=== PATIENT | female | born 1980 | race Hispanic/Latino ===

== ENCOUNTER 2018-02-21 14:24 | Emergency (ER) | payer MEDICAID, OTHER ==
[~2018-02-21 14:24] MED LIST: DOCU-116 PO; IBUP-2077 PO; PRED10TA23 PO; PREN-196 PO; PREN1TAB80 PO
[2018-02-21] MEDS ORDERED: SODIUM CHLORIDE 0.9% 1000ML 2,000 ML IV ONE (14:38)
[2018-02-21 14:51] LABS: BASOPHILS % (AUTO) 0.5 % (0.0-5.0); EOSINOPHILS % (AUTO) 1.1 % (0.0-8.0); LYMPHOCYTES % (AUTO) 30.4 % (21.0-51.0); MEAN CORPUSCULAR HEMOGLOBIN 28.8 pg (27.0-33.0); MEAN CORPUSCULAR VOLUME 84.9 fL (79-99); MONOCYTES % (AUTO) 7.2 % (3.0-13.0); NEUTROPHILS % (AUTO) 60.8 % (40.0-77.0); PLATELET COUNT (AUTO) 283 K/uL (130-400); RED BLOOD CELL COUNT(AUTO) 4.83 MIL/uL (4.00-5.50); RED CELL DISTRIBUTION WIDTH 14.6 % (11.0-15.5); WHITE BLOOD COUNT (AUTO) 8.8 K/uL (4.8-10.8)
[2018-02-21 14:53] LABS: HCG,QUAL RESULT POSITIVE (NEGATIVE)
[2018-02-21 14:54] LABS: APPEARANCE,URINE Clear (CLEAR); BILIRUBIN,URINE Negative (NEGATIVE); COLOR,URINE Yellow (YELLOW); GLUCOSE, URINE (UA) Negative (NEGATIVE); KETONES,URINE Negative (NEGATIVE); LEUKOCYTE ESTERASE ,URINE Moderate (NEGATIVE); NITRATE,URINE Negative (NEGATIVE); OCCULT BLOOD,URINE Negative (NEGATIVE); PH,URINE 7.5 (5.0-8.0); PROTEIN,URINE Negative (NEGATIVE)
[2018-02-21 15:02] LABS: CREATININE 0.7 mg/dL (0.5-1.5); POTASSIUM 3.3 mmol/L (3.5-5.1)
[2018-02-21 15:03] LABS: BACTERIA,URINE Few /HPF (None Seen); RBC,URINE None Seen /HPF (0-1); WBC,URINE 0-1 /HPF (0-1)
[2018-02-21 15:30] LABS: BILIRUBIN,TOTAL 0.5 mg/dL (0.2-1.0); TOTAL PROTEIN, SERUM 7.7 g/dL (6.0-8.3)
[2018-02-21] MEDS ORDERED: ONDANSETRON HCL 4 MG/2 ML VIAL ONE (15:51)
== END 2018-02-21 16:33 | disposition home or self-care (01) ==
LOC: EDH 14:24
DX: O26.891 Other specified pregnancy related conditions, first trimester (principal); R10.9 Unspecified abdominal pain; R11.2 Nausea with vomiting, unspecified; R51 Headache; M06.9 Rheumatoid arthritis, unspecified; H40.89 Other specified glaucoma; Z98.890 Other specified postprocedural states
CPT/HCPCS: 36415; 76801; 80053; 81001; 81025; 83690; 84702; 85025; 96361; 96374; 99285; J2405; J7030

== ENCOUNTER 2018-02-25 11:04 | Emergency (ER) | payer MEDICAID, OTHER ==
[2018-02-25 11:47] LABS: BASOPHILS % (AUTO) 0.5 % (0.0-5.0); EOSINOPHILS % (AUTO) 0.2 % (0.0-8.0); HEMATOCRIT 40.2 % (36-48); LYMPHOCYTES % (AUTO) 24.4 % (21.0-51.0); MEAN CORPUSCULAR HEMOGLOBIN 28.8 pg (27.0-33.0); MEAN CORPUSCULAR VOLUME 84.5 fL (79-99); MONOCYTES % (AUTO) 4.7 % (3.0-13.0); NEUTROPHILS % (AUTO) 70.2 % (40.0-77.0); NUCLEATED RED BLOOD CELLS 0.1 % (0.0-0.19); PLATELET COUNT (AUTO) 263 K/uL (130-400); RED BLOOD CELL COUNT(AUTO) 4.76 MIL/uL (4.00-5.50); WHITE BLOOD COUNT (AUTO) 8.4 K/uL (4.8-10.8)
[2018-02-25] MEDS ORDERED: ONDANSETRON HCL 4 MG/2 ML VIAL ONE (11:48)
[2018-02-25] MEDS ORDERED: SODIUM CHLORIDE 0.9% 1000ML 1,000 ML IV ONE (11:48)
[2018-02-25] MEDS ORDERED: LIDOCAINE 5% TOPICAL PATCH TP ONE (11:49)
[2018-02-25] MEDS ORDERED: ACETAMINOPHEN 325 MG TAB ONE (11:49)
[2018-02-25 11:53] LABS: CREATININE 0.8 mg/dL (0.5-1.5); POTASSIUM 3.6 mmol/L (3.5-5.1)
[2018-02-25 11:58] LABS: ALBUMIN 3.9 g/dL (3.5-5.0); BILIRUBIN,TOTAL 0.8 mg/dL (0.2-1.0); TOTAL PROTEIN, SERUM 7.5 g/dL (6.0-8.3)
== END 2018-02-25 12:27 | disposition home or self-care (01) ==
LOC: EDH 11:04
DX: O21.0 Mild hyperemesis gravidarum (principal); O26.891 Other specified pregnancy related conditions, first trimester; M25.551 Pain in right hip; M06.9 Rheumatoid arthritis, unspecified; H40.9 Unspecified glaucoma; Z3A.01 Less than 8 weeks gestation of pregnancy
CPT/HCPCS: 36415; 80053; 85025; 96361; 96374; 99284; J2405; J7030

== ENCOUNTER 2018-02-26 13:28 | Observation (INO) | payer MEDICAID, OTHER ==
[~2018-02-26] VITALS: Ht 154.9 cm; Wt 74.8 kg
[2018-02-26 14:19] LABS: APPEARANCE,URINE Clear (CLEAR); BILIRUBIN,URINE Small (NEGATIVE); COLOR,URINE Dark Yellow (YELLOW); GLUCOSE, URINE (UA) Negative (NEGATIVE); KETONES,URINE >=80 mg/dL (NEGATIVE); LEUKOCYTE ESTERASE ,URINE Moderate (NEGATIVE); NITRATE,URINE Negative (NEGATIVE); OCCULT BLOOD,URINE Negative (NEGATIVE); PH,URINE 5.5 (5.0-8.0); PROTEIN,URINE POS 1+ (NEGATIVE)
[2018-02-26] MEDS ORDERED: ACETAMINOPHEN 325 MG TAB ONE (14:20)
[2018-02-26 14:23] LABS: BASOPHILS % (AUTO) 0.3 % (0.0-5.0); EOSINOPHILS % (AUTO) 0.2 % (0.0-8.0); HEMATOCRIT 38.9 % (36-48); LYMPHOCYTES % (AUTO) 24.3 % (21.0-51.0); MEAN CORPUSCULAR HEMOGLOBIN 28.6 pg (27.0-33.0); MEAN CORPUSCULAR HGB CONC 33.6 g/dL (32.0-36.0); MEAN CORPUSCULAR VOLUME 85.2 fL (79-99); MONOCYTES % (AUTO) 5.5 % (3.0-13.0); NEUTROPHILS % (AUTO) 69.7 % (40.0-77.0); PLATELET COUNT (AUTO) 261 K/uL (130-400); RED BLOOD CELL COUNT(AUTO) 4.57 MIL/uL (4.00-5.50); RED CELL DISTRIBUTION WIDTH 14.3 % (11.0-15.5); WHITE BLOOD COUNT (AUTO) 9.6 K/uL (4.8-10.8)
[2018-02-26 14:31] LABS: CREATININE 0.7 mg/dL (0.5-1.5); POTASSIUM 3.7 mmol/L (3.5-5.1)
[2018-02-26 14:40] LABS: BACTERIA,URINE Few /HPF (None Seen); RBC,URINE 0-1 /HPF (0-1); SQUAMOUS EPITHELIAL CELL,UR Few /HPF (0-2)
[2018-02-26 14:41] LABS: MUCUS,URINE Rare LPF (None Seen)
[2018-02-26 14:57] LABS: ALBUMIN 3.9 g/dL (3.5-5.0); BILIRUBIN,TOTAL 0.7 mg/dL (0.2-1.0); TOTAL PROTEIN, SERUM 7.7 g/dL (6.0-8.3)
[2018-02-26] MEDS ORDERED: ONDANSETRON HCL 4 MG/2 ML VIAL ONE (17:09)
[2018-02-26] MEDS ORDERED: SODIUM CHLORIDE 0.9% 1000ML 1,000 ML IV ONE (17:09)
[2018-02-26] MEDS ORDERED: METOCLOPRAMIDE 10 MG/2 ML VIAL ONE (17:12)
[2018-02-26] MEDS ORDERED: DiphenhydrAMINE HCL 50 MG/ML VIAL ONE (17:46)
[2018-02-26 18:22] VITALS: BP 137/69
[2018-02-26] MEDS ORDERED: ACETAMINOPHEN-CODEINE 300/30MG TAB PO PRN (18:45)
[2018-02-26 20:56] VITALS: BP 113/59
[2018-02-27 00:28] VITALS: BP 113/66
[2018-02-27] MEDS: DEXTROSE 5%-LACTATED RINGERS 1,000 ML IV SCH ×3 (01:25→09:58)
[2018-02-27 04:25] VITALS: BP 130/76
[2018-02-27 06:34] LABS: BASOPHILS % (AUTO) 0.4 % (0.0-5.0); EOSINOPHILS % (AUTO) 0.7 % (0.0-8.0); HEMATOCRIT 36.4 % (36-48); LYMPHOCYTES % (AUTO) 31.4 % (21.0-51.0); MEAN CORPUSCULAR HGB CONC 34.2 g/dL (32.0-36.0); MEAN CORPUSCULAR VOLUME 84.9 fL (79-99); MONOCYTES % (AUTO) 7.6 % (3.0-13.0); NEUTROPHILS % (AUTO) 59.9 % (40.0-77.0); PLATELET COUNT (AUTO) 220 K/uL (130-400); RED BLOOD CELL COUNT(AUTO) 4.29 MIL/uL (4.00-5.50); RED CELL DISTRIBUTION WIDTH 14.2 % (11.0-15.5)
[2018-02-27 06:41] LABS: CREATININE 0.7 mg/dL (0.5-1.5); POTASSIUM 3.5 mmol/L (3.5-5.1)
[2018-02-27 07:20] VITALS: BP 126/61
[2018-02-27] MEDS: ONDANSETRON HCL 4 MG/2 ML VIAL IVP PRN ×2 (07:20→14:29)
[2018-02-27 11:59] VITALS: BP 115/70
[2018-02-27 15:20] VITALS: BP 129/79
[2018-02-27] MEDS ORDERED: PROMETHAZINE HCL 25 MG SUPPOSITORY RC SCH (16:15)
== END 2018-02-27 17:50 | disposition home or self-care (01) ==
LOC: EDH 13:28 → EDHIP 13:29 → WSH 18:20
PROVIDERS: ADMIT Specialist; ATTEND Specialist
DX: O21.0 Mild hyperemesis gravidarum (principal); Z3A.01 Less than 8 weeks gestation of pregnancy
CPT/HCPCS: 36415 ×2; 76801; 80048; 80053; 81001; 84702; 85025 ×2; 96361; 96374; 96376; 99285; G0378 ×28; J1200; J2405 ×2; J2765; J7030

== ENCOUNTER 2018-03-07 11:54 | Emergency (ER) | payer MEDICAID ==
[2018-03-07 12:49] LABS: BILIRUBIN,URINE Moderate (NEGATIVE); COLOR,URINE Dark Yellow (YELLOW); GLUCOSE, URINE (UA) Negative (NEGATIVE); KETONES,URINE 40 mg/dL (NEGATIVE); LEUKOCYTE ESTERASE ,URINE Moderate (NEGATIVE); NITRATE,URINE Positive (NEGATIVE); OCCULT BLOOD,URINE Trace (NEGATIVE); PROTEIN,URINE POS 1+ (NEGATIVE)
[2018-03-07 12:50] LABS: APPEARANCE,URINE SLIGHTLY CLOUDY (CLEAR)
[2018-03-07 12:58] LABS: BACTERIA,URINE Moderate /HPF (None Seen); RBC,URINE 0-1 /HPF (0-1)
[2018-03-07 13:16] LABS: BASOPHILS % (AUTO) 0.5 % (0.0-5.0); EOSINOPHILS % (AUTO) 0.4 % (0.0-8.0); HEMATOCRIT 46.5 % (36-48); LYMPHOCYTES % (AUTO) 21.2 % (21.0-51.0); MEAN CORPUSCULAR HEMOGLOBIN 28.3 pg (27.0-33.0); MEAN CORPUSCULAR HGB CONC 33.6 g/dL (32.0-36.0); MEAN CORPUSCULAR VOLUME 84.2 fL (79-99); MONOCYTES % (AUTO) 8.2 % (3.0-13.0); NEUTROPHILS % (AUTO) 69.7 % (40.0-77.0); NUCLEATED RED BLOOD CELLS 0.1 % (0.0-0.19); PLATELET COUNT (AUTO) 294 K/uL (130-400); RED BLOOD CELL COUNT(AUTO) 5.52 MIL/uL (4.00-5.50); WHITE BLOOD COUNT (AUTO) 8.7 K/uL (4.8-10.8)
[2018-03-07 13:28] LABS: HCG,QUAL RESULT POSITIVE (NEGATIVE)
[2018-03-07 13:32] LABS: CARBON DIOXIDE 29 mmol/L (21-32); CHLORIDE 96 mmol/L (101-111); GLOMERULAR FILTR. RATE CALC 66 mL/min (>60); GLUCOSE,RANDOM 95 mg/dL (70-105); POTASSIUM 3.7 mmol/L (3.5-5.1); SODIUM SERUM 133 mmol/L (136-145); UREA NITROGEN, BLOOD 17 mg/dL (7-18)
[2018-03-07 13:36] LABS: AMPHET/METH SCREEN,URINE NEGATIVE (NEGATIVE); BARBITURATE SCREEN, URINE NEGATIVE (NEGATIVE); BENZODIAZEPINES SCREEN,URINE NEGATIVE (NEGATIVE); CANNABINOID SCREEN,URINE POSITIVE (NEGATIVE); COCAINE SCREEN,URINE NEGATIVE (NEGATIVE); OPIATE SCREEN,URINE NEGATIVE (NEGATIVE); PHENCYCLIDINE SCREEN,URINE NEGATIVE (NEGATIVE)
[2018-03-07 13:38] LABS: ALANINE AMINOTRANSFERASE 101 U/L (12-78); ALBUMIN 4.1 g/dL (3.5-5.0); ASPARTATE AMINOTRANSFERASE 47 U/L (10-37); BILIRUBIN,TOTAL 1.5 mg/dL (0.2-1.0); TOTAL PROTEIN, SERUM 8.3 g/dL (6.0-8.3)
[2018-03-07] MEDS ORDERED: SODIUM CHLORIDE 0.9% 1000ML 1,000 ML IV ONE (13:38)
[2018-03-07] MEDS ORDERED: PROMETHAZINE HCL 25 MG/ML 1ML AMPULE IM ONE (13:39)
[2018-03-07 13:41] LABS: ACETAMINOPHEN < 1 mcg/mL (10-30); SALICYLATE < 2.8 mg/dL (2.8-20.0)
[2018-03-07] MEDS ORDERED: ONDANSETRON ODT 4 MG TAB ONE (16:58)
== END 2018-03-07 17:32 | disposition home or self-care (01) ==
LOC: EDH 11:54
DX: O21.0 Mild hyperemesis gravidarum (principal); O26.891 Other specified pregnancy related conditions, first trimester; F32.9 Major depressive disorder, single episode, unspecified; F12.10 Cannabis abuse, uncomplicated; M06.9 Rheumatoid arthritis, unspecified; H40.9 Unspecified glaucoma; Z3A.08 8 weeks gestation of pregnancy
CPT/HCPCS: 36415; 80053; 80305; 81001; 81025; 85025; 96361; 96374; 99284; G0480 ×2; G0481; J2550; J7030

== ENCOUNTER 2018-03-11 10:34 | Emergency (ER) | payer MEDICAID ==
[2018-03-11] MEDS ORDERED: SODIUM CHLORIDE 0.9% 1000ML 2,000 ML IV ONE (11:34)
[2018-03-11] MEDS ORDERED: PROMETHAZINE HCL 25 MG/ML 1ML AMPULE IM ONE (11:35)
[2018-03-11 11:49] LABS: BASOPHILS % (AUTO) 0.6 % (0.0-5.0); EOSINOPHILS % (AUTO) 0.5 % (0.0-8.0); HEMATOCRIT 45.9 % (36-48); LYMPHOCYTES % (AUTO) 21.2 % (21.0-51.0); MEAN CORPUSCULAR HEMOGLOBIN 28.7 pg (27.0-33.0); MEAN CORPUSCULAR HGB CONC 34.6 g/dL (32.0-36.0); MEAN CORPUSCULAR VOLUME 82.9 fL (79-99); MONOCYTES % (AUTO) 8.6 % (3.0-13.0); NEUTROPHILS % (AUTO) 69.1 % (40.0-77.0); PLATELET COUNT (AUTO) 290 K/uL (130-400); RED BLOOD CELL COUNT(AUTO) 5.53 MIL/uL (4.00-5.50); RED CELL DISTRIBUTION WIDTH 13.9 % (11.0-15.5); WHITE BLOOD COUNT (AUTO) 9.2 K/uL (4.8-10.8)
[2018-03-11 12:07] LABS: ALBUMIN 4.1 g/dL (3.5-5.0); BILIRUBIN,DIRECT 0.8 mg/dL (0.0-0.3); BILIRUBIN,TOTAL 1.5 mg/dL (0.2-1.0); CREATININE 1.1 mg/dL (0.5-1.5); TOTAL PROTEIN, SERUM 8.5 g/dL (6.0-8.3)
[2018-03-11] MEDS ORDERED: SODIUM CHLORIDE 0.9% 1000ML 1,000 ML IV ONE (13:41)
[2018-03-11 13:59] LABS: APPEARANCE,URINE Cloudy (CLEAR); BILIRUBIN,URINE Small (NEGATIVE); COLOR,URINE Dark Yellow (YELLOW); GLUCOSE, URINE (UA) Negative (NEGATIVE); KETONES,URINE 40 mg/dL (NEGATIVE); LEUKOCYTE ESTERASE ,URINE Trace (NEGATIVE); NITRATE,URINE Negative (NEGATIVE); OCCULT BLOOD,URINE Negative (NEGATIVE); PH,URINE 8.5 (5.0-8.0); PROTEIN,URINE POS 1+ (NEGATIVE)
[2018-03-11 14:05] LABS: AMPHET/METH SCREEN,URINE NEGATIVE (NEGATIVE); BARBITURATE SCREEN, URINE NEGATIVE (NEGATIVE); BENZODIAZEPINES SCREEN,URINE NEGATIVE (NEGATIVE); CANNABINOID SCREEN,URINE POSITIVE (NEGATIVE); COCAINE SCREEN,URINE NEGATIVE (NEGATIVE); OPIATE SCREEN,URINE NEGATIVE (NEGATIVE); PHENCYCLIDINE SCREEN,URINE NEGATIVE (NEGATIVE)
[2018-03-11 14:10] LABS: BACTERIA,URINE Few /HPF (None Seen); HYALINE CASTS, URINE 0-1 /LPF (0-1 /LPF); RBC,URINE 0-1 /HPF (0-1); WBC,URINE 0-1 /HPF (0-1)
[2018-03-11] MEDS ORDERED: POTASSIUM BICARB/CIT AC 25 MEQ TABLET.EFF ONE (14:10)
== END 2018-03-11 14:41 | disposition home or self-care (01) ==
LOC: EDH 10:34
DX: O21.1 Hyperemesis gravidarum with metabolic disturbance (principal); M06.9 Rheumatoid arthritis, unspecified; H40.9 Unspecified glaucoma; Z3A.00 Weeks of gestation of pregnancy not specified
CPT/HCPCS: 36415; 80048; 80076; 80305; 81001; 82150; 83690; 85025; 96361; 96365; 99285; J2550; J7030 ×2

== ENCOUNTER 2018-09-01 09:34 | Observation (INO) | payer MEDICAID ==
[~2018-09-01 09:34] MED LIST changes: -DOCU-116 PO; +DOXY1TAB3 PO; -IBUP-2077 PO; -PRED10TA23 PO; -PREN-196 PO; -PREN1TAB80 PO
== END 2018-09-01 11:05 | disposition home or self-care (01) ==
LOC: LDH 09:34
PROVIDERS: ADMIT Specialist; ATTEND Specialist
DX: O09.523 Supervision of elderly multigravida, third trimester (principal); Z3A.33 33 weeks gestation of pregnancy
CPT/HCPCS: 59025; 76819; G0378 ×3

== ENCOUNTER 2018-09-18 15:56 | Observation (INO) | payer MEDICAID ==
[~2018-09-18] VITALS: Ht 157.5 cm; Wt 88.0 kg
[2018-09-18] MEDS: LACTATED RINGERS 1000ML 1,000 ML IV SCH ×2 (15:30→16:30)
[2018-09-18] MEDS ORDERED: ONDANSETRON HCL MDV 20ML 2 MG/ML VIAL IVP PRN (16:15)
[2018-09-18] MEDS ORDERED: AMPICILLIN 2GM+NS 100ML 100 ML IV ONE (16:26)
[2018-09-18] MEDS ORDERED: ONDANSETRON HCL 4 MG/2 ML VIAL ONE (16:27)
== END 2018-09-18 18:25 | disposition home or self-care (01) ==
LOC: LDH 15:56
DX: O41.03X0 Oligohydramnios, third trimester, not applicable or unspecified (principal); O21.2 Late vomiting of pregnancy; O23.43 Unspecified infection of urinary tract in pregnancy, third trimester; O09.523 Supervision of elderly multigravida, third trimester; Z3A.35 35 weeks gestation of pregnancy
CPT/HCPCS: 59025; 87088; 96361 ×2; 96365; G0378 ×3; J0290; J7120 ×2; J2405

== ENCOUNTER 2018-09-20 17:14 | Observation (INO) | payer MEDICAID | END 2018-09-21 10:38 | disposition home or self-care (01) | LOC: LDH 09-21 08:39 | DX: O26.893 Other specified pregnancy related conditions, third trimester (principal); R10.2 Pelvic and perineal pain; R10.30 Lower abdominal pain, unspecified; O09.523 Supervision of elderly multigravida, third trimester; Z3A.36 36 weeks gestation of pregnancy | CPT/HCPCS: 59025; 76819; G0378 ×2 ==

== ENCOUNTER 2018-09-27 09:15 | Observation (INO) | payer MEDICAID | END 2018-09-27 11:00 | disposition home or self-care (01) | LOC: EDH 09:15 → LDH 09:30 | PROVIDERS: ADMIT Specialist; ATTEND Specialist | DX: O26.893 Other specified pregnancy related conditions, third trimester (principal); R10.9 Unspecified abdominal pain; M54.9 Dorsalgia, unspecified; M06.9 Rheumatoid arthritis, unspecified; O09.523 Supervision of elderly multigravida, third trimester; O99.113 Other diseases of the blood and blood-forming organs and certain disorders involving the immune mechanism complicating pregnancy, third trimester; Z3A.37 37 weeks gestation of pregnancy | CPT/HCPCS: 99284; G0378 ==

== ENCOUNTER 2018-10-03 06:38 | Inpatient (IN) | payer MEDICAID | END 2018-10-04 14:40 | disposition home or self-care (01) | LOC: LDH 06:38 → WSH 15:15 | PROC: 10E0XZZ Delivery of Products of Conception, External Approach (ICD-10-PCS; principal; ~2018-10-03) | DX: O80 Encounter for full-term uncomplicated delivery (principal); Z37.0 Single live birth; Z3A.00 Weeks of gestation of pregnancy not specified ==

== ENCOUNTER 2018-11-24 07:34 | Day surgery (SDC) | payer MEDICAID ==
[2018-11-21 12:23] LABS: BASOPHILS % (AUTO) 0.7 % (0.0-5.0); EOSINOPHILS % (AUTO) 3.5 % (0.0-8.0); HEMATOCRIT 39.9 % (36-48); LYMPHOCYTES % (AUTO) 34.2 % (21.0-51.0); MEAN CORPUSCULAR HEMOGLOBIN 27.1 pg (27.0-33.0); MEAN CORPUSCULAR HGB CONC 32.7 g/dL (32.0-36.0); MEAN CORPUSCULAR VOLUME 82.6 fL (79-99); MONOCYTES % (AUTO) 4.7 % (3.0-13.0); NEUTROPHILS % (AUTO) 56.9 % (40.0-77.0); NUCLEATED RED BLOOD CELLS 0.1 % (0.0-0.19); PLATELET COUNT (AUTO) 255 K/uL (130-400); RED BLOOD CELL COUNT(AUTO) 4.83 MIL/uL (4.00-5.50); RED CELL DISTRIBUTION WIDTH 15.4 % (11.0-15.5); WHITE BLOOD COUNT (AUTO) 6.9 K/uL (4.8-10.8)
[2018-11-21 13:11] VITALS: BP 120/78
[2018-11-24] VITALS (14 sets, daily range): BP systolic 119–195; BP diastolic 64–93
[~2018-11-24] VITALS: Ht 157.5 cm; Wt 84.2 kg
[~2018-11-24 07:34] MED LIST changes: -DOXY1TAB3 PO; +IBUP-2077 PO
[2018-11-24] MEDS ORDERED: LACTATED RINGERS 1000ML 1,000 ML IV ONE (08:19)
[2018-11-24] MEDS ORDERED: GLYCOPYRROLATE 1 MG/5 ML SYRINGE ONE (08:35)
[2018-11-24] MEDS ORDERED: ONDANSETRON HCL 4 MG/2 ML VIAL ONE (08:35)
[2018-11-24] MEDS ORDERED: NEOSTIGMINE 5MG/5ML SYR IV ONE (08:35)
[2018-11-24] MEDS ORDERED: DEXAMETHASONE SOD PHOSPHATE 10MG/ML 1ML VIAL ONE (08:35)
[2018-11-24] MEDS ORDERED: LIDOCAINE PF 2% 5ML ABBOJECT ONE ×2 (08:35→08:36)
[2018-11-24] MEDS ORDERED: SUCCINYLCHOLINE 200MG/10ML SYR ONE (08:35)
[2018-11-24] MEDS ORDERED: PROPOFOL 10 MG/ML 20ML VIAL IV ONE (08:35)
[2018-11-24] MEDS ORDERED: MIDAZOLAM HCL 1 MG/ML 2ML VIAL ONE (08:35)
[2018-11-24] MEDS ORDERED: FENTANYL CITRATE PF 50 MCG/1 ML 2ML VIAL ONE (08:36)
[2018-11-24] MEDS ORDERED: ROCURONIUM 10MG/1ML SYR 10 MG/ML ML ONE (08:36)
[2018-11-24] MEDS ORDERED: KETOROLAC TROMETHAMINE 30MG/ML ONE (09:39)
--- NOTE | 2018-11-24 10:32 | NUR ---
RECEIVED AWAKE ALERT ,NO COMPLAINTS OF DISCOMFORT ,CALL HESS IN REACH,BANDAIDES X2 TO ABDOMEN CLEAN ,ENCOURAGED TO DB AND COUGH ,RETURNS DEMONSTRATION ,WILL CONTINUE TO MONITOR Addendum: 11/24/18 at 1214 by ISMAEL ROB LVN LVN WITH SCANT AMT OF VAGINAL BLEEDING
--- NOTE | 2018-11-24 11:05 | NUR ---
DISCHARGE INSTRUCTIONS GIVEN TO SPOUSE ,VERBALIZE UNDERSTANDING,AND ALSO TO PATIENT,,,,STATES SLIGHT CRAMPING ,BUT TOLERABLE,,AMBULATES TO BR ,STEADY GAIT ,STATES DOES NOT FEEL LIKE HAS TO URINATE ,ENCOURAGED PO FLUIDS TOLERATES ,TO REPORT TO ER OR CALL MD IF CANNOT GO WITHIN 6-8 HOURS AFTER DISCHARGE ,VERBALIZES UNDERSTANDING,NONDISTENDED. Addendum: 11/24/18 at 1153 by ISMAEL ROB LVN LVN PRESCRIPTION GIVEN TO SPOUSE Addendum: 11/24/18 at 1216 by ISMAEL ROB LVN LVN INSTRUCTIONS ON IF HEAVY BLEEDING TO CALL MD OR COME TO ER ,VERBALIZES UNDERSTANDING,CONTINUES WITH SCANT AMT OF VAGINAL BLEEDING
== END 2018-11-24 11:26 | disposition home or self-care (01) ==
LOC: DAH 07:34
PROVIDERS: ATTEND Specialist
DX: Z30.2 Encounter for sterilization (principal); Z98.890 Other specified postprocedural states; Z79.899 Other long term (current) drug therapy; M06.9 Rheumatoid arthritis, unspecified
CPT/HCPCS: 36415; 58671; 84703; 85025; 86850; 86900; 86901; A4215 ×2; A4264; A4351; C1769 ×2; J0330; J1100; J1885; J2001 ×2; J2250; J2405; J2704; J2710; J3010; J3490; J7120

== ENCOUNTER 2020-02-23 16:09 | Emergency (ER) | payer MEDICAID, OTHER | END 2020-02-23 16:23 | disposition left against medical advice (07) | LOC: EDH 16:09 | DX: Z53.21 Procedure and treatment not carried out due to patient leaving prior to being seen by health care provider (principal); M06.9 Rheumatoid arthritis, unspecified; Z72.0 Tobacco use ==

== ENCOUNTER 2020-02-24 08:49 | Emergency (ER) | payer SELFPAY ==
[2020-02-24 09:57] LABS: APPEARANCE,URINE TURBID (CLEAR); BILIRUBIN,URINE NEGATIVE (NEGATIVE); COLOR,URINE YELLOW (YELLOW); GLUCOSE, URINE (UA) NEGATIVE (NEGATIVE); KETONES,URINE NEGATIVE (NEGATIVE); LEUKOCYTE ESTERASE ,URINE NEGATIVE (NEGATIVE); NITRATE,URINE NEGATIVE (NEGATIVE); OCCULT BLOOD,URINE LARGE (NEGATIVE); PH,URINE 5.5 (5.0-8.0); PROTEIN,URINE NEGATIVE (NEGATIVE); UROBILINOGEN,URINE 0.2 mg/dL (0.2-1.0)
[2020-02-24 10:02] LABS: HCG,QUAL RESULT NEGATIVE (NEGATIVE)
[2020-02-24 10:05] LABS: AMPHET/METH SCREEN,URINE NEGATIVE (NEGATIVE); BARBITURATE SCREEN, URINE NEGATIVE (NEGATIVE); BENZODIAZEPINES SCREEN,URINE NEGATIVE (NEGATIVE); CANNABINOID SCREEN,URINE POSITIVE (NEGATIVE); COCAINE SCREEN,URINE NEGATIVE (NEGATIVE); OPIATE SCREEN,URINE NEGATIVE (NEGATIVE); PHENCYCLIDINE SCREEN,URINE NEGATIVE (NEGATIVE)
[2020-02-24 10:06] LABS: RBC,URINE >100 /HPF (0-1); WBC,URINE 0-1 /HPF (0-1)
[2020-02-24 10:07] LABS: AMORPHOUS SEDIMENT,UR Moderate /LPF (None Seen); BACTERIA,URINE Moderate /HPF (None Seen); SQUAMOUS EPITHELIAL CELL,UR Rare /HPF (0-2)
[2020-02-24 10:23] LABS: BASOPHILS % (AUTO) 0.5 % (0.0-5.0); EOSINOPHILS % (AUTO) 1.8 % (0.0-8.0); HEMATOCRIT 24.6 % (36-48); LYMPHOCYTES % (AUTO) 36.8 % (21.0-51.0); MEAN CORPUSCULAR HEMOGLOBIN 22.4 pg (27.0-33.0); MEAN CORPUSCULAR HGB CONC 29.7 g/dL (32.0-36.0); MEAN CORPUSCULAR VOLUME 75.5 fL (79-99); MONOCYTES % (AUTO) 5.3 % (3.0-13.0); NEUTROPHILS % (AUTO) 55.3 % (40.0-77.0); PLATELET COUNT (AUTO) 341 K/uL (130-400); RED BLOOD CELL COUNT(AUTO) 3.26 MIL/uL (4.00-5.50); RED CELL DISTRIBUTION WIDTH 14.9 % (11.0-15.5)
[2020-02-24 10:37] LABS: CREATININE 0.8 mg/dL (0.5-1.5); POTASSIUM 4.1 mmol/L (3.5-5.1)
[2020-02-24 10:41] LABS: BILIRUBIN,DIRECT 0.1 mg/dL (0.0-0.3); BILIRUBIN,TOTAL 0.3 mg/dL (0.2-1.0)
[2020-02-24 10:42] LABS: ALBUMIN 3.7 g/dL (3.5-5.0); INR 0.93 (0.85-1.15); PARTIAL THROMBOPLASTIN TIME 26.4 SEC (26.3-35.5); PROTHROMBIN TIME 10.1 SEC (9.6-11.6); TOTAL PROTEIN, SERUM 6.8 g/dL (6.0-8.3)
== END 2020-02-24 12:03 | disposition home or self-care (01) ==
LOC: EDH 08:49
DX: N93.8 Other specified abnormal uterine and vaginal bleeding (principal); D50.9 Iron deficiency anemia, unspecified; M06.9 Rheumatoid arthritis, unspecified; Z72.0 Tobacco use
CPT/HCPCS: 36415; 80048; 80076; 80305; 81001; 81025; 82550; 85025; 85610; 85730; 86850; 86900; 86901; 87088

== ENCOUNTER 2020-02-25 09:30 | Inpatient (IN) | payer OTHER ==
[~2020-02-25] VITALS: Ht 157.5 cm; Wt 80.3 kg
[2020-02-25] VITALS (24 sets, daily range): BP systolic 97–159; BP diastolic 47–88
[2020-02-25 10:13] LABS: BASOPHILS % (AUTO) 0.5 % (0.0-5.0); EOSINOPHILS % (AUTO) 2.1 % (0.0-8.0); HEMATOCRIT 24.9 % (36-48); LYMPHOCYTES % (AUTO) 36.5 % (21.0-51.0); MEAN CORPUSCULAR HEMOGLOBIN 22.4 pg (27.0-33.0); MEAN CORPUSCULAR HGB CONC 29.7 g/dL (32.0-36.0); MEAN CORPUSCULAR VOLUME 75.5 fL (79-99); MONOCYTES % (AUTO) 5.1 % (3.0-13.0); NEUTROPHILS % (AUTO) 55.3 % (40.0-77.0); NUCLEATED RED BLOOD CELLS 0.5 % (0.0-0.19); PLATELET COUNT (AUTO) 372 K/uL (130-400); RED CELL DISTRIBUTION WIDTH 15.1 % (11.0-15.5); WHITE BLOOD COUNT (AUTO) 6.1 K/uL (4.8-10.8)
[2020-02-25 10:26] LABS: APPEARANCE,URINE CLEAR (CLEAR); BILIRUBIN,URINE NEGATIVE (NEGATIVE); COLOR,URINE YELLOW (YELLOW); GLUCOSE, URINE (UA) NEGATIVE (NEGATIVE); KETONES,URINE NEGATIVE (NEGATIVE); LEUKOCYTE ESTERASE ,URINE NEGATIVE (NEGATIVE); NITRATE,URINE NEGATIVE (NEGATIVE); OCCULT BLOOD,URINE MODERATE (NEGATIVE); PH,URINE 5.5 (5.0-8.0); PROTEIN,URINE NEGATIVE (NEGATIVE); UROBILINOGEN,URINE 0.2 mg/dL (0.2-1.0)
[2020-02-25 10:27] LABS: BACTERIA,URINE Rare /HPF (None Seen); MUCUS,URINE Rare LPF (None Seen); SQUAMOUS EPITHELIAL CELL,UR Rare /HPF (0-2); WBC,URINE 0-1 /HPF (0-1)
[2020-02-25 10:29] LABS: HCG,QUAL RESULT NEGATIVE (NEGATIVE)
[2020-02-25 10:31] LABS: CREATININE 0.8 mg/dL (0.5-1.5); POTASSIUM 3.8 mmol/L (3.5-5.1)
[2020-02-25 10:36] LABS: ALBUMIN 3.8 g/dL (3.5-5.0); BILIRUBIN,DIRECT 0.1 mg/dL (0.0-0.3); BILIRUBIN,TOTAL 0.3 mg/dL (0.2-1.0)
[2020-02-25 10:38] LABS: INR 0.94 (0.85-1.15); PARTIAL THROMBOPLASTIN TIME 26.3 SEC (26.3-35.5); PROTHROMBIN TIME 10.2 SEC (9.6-11.6)
[2020-02-25] MEDS ORDERED: SODIUM CHLORIDE 0.9% 1000ML 1,000 ML IV SCH (11:15)
--- NOTE | 2020-02-25 13:03 | NUR ---
1 unit of blood started transfusing, witnessed by Romina Bailon RN Addendum: 02/25/20 at 1343 by FLORENCE STEPHENS RN Amended: Links added.
--- NOTE | 2020-02-25 15:40 | NUR ---
1 unit of blood transfused, no reactions noted. Addendum: 02/25/20 at 1602 by FLORENCE STEPHENS RN Amended: Links added.
--- NOTE | 2020-02-25 15:55 | NUR ---
taken to holding area via her bed by Maribel Barraza [facility] area RN Addendum: 02/25/20 at 1600 by FLORENCE STEPHENS RN Amended: Links added.
[2020-02-25] MEDS ORDERED: SUCCINYLCHOLINE CHLORIDE 20 MG/ML 10 ML VIAL ONE (16:11)
[2020-02-25] MEDS ORDERED: PROPOFOL 10 MG/ML 20ML VIAL IV ONE (16:11)
[2020-02-25] MEDS ORDERED: LIDOCAINE PF 2% 5ML ABBOJECT ONE (16:11)
[2020-02-25] MEDS ORDERED: FENTANYL CITRATE PF 50 MCG/1 ML 2ML VIAL ONE (16:12)
[2020-02-25] MEDS ORDERED: ONDANSETRON HCL 4 MG/2 ML VIAL ONE (16:44)
[2020-02-25 17:07] LABS: HEMATOCRIT 25.5 % (36-48)
[2020-02-25] MEDS ORDERED: ACETAMINOPHEN-CODEINE 300/30MG TAB PO PRN (18:15)
--- NOTE | 2020-02-25 19:50 | NUR ---
ACTIVITY/STATUS A, A, O , TAKING FLUIDS WELL, DENIES ANY PROBLEMS, UP TO BR TO VOID WITHOUT DIFFICULTY, V/S STABLE, IV REMOVED SITE HEALTHY, BAND AID APPLIED Addendum: 02/26/20 at 0046 by ESEQUIEL ATKINSON LVN Amended: Links added.
--- NOTE | 2020-02-25 20:30 | NUR ---
STATUS/DISCHARGE DENIES ANY CONCERNS, DISCHARGE INSTRUCTIONS GIVEN , ACKNOWLEDGES UNDERSTANDING TO VEHICLE VIA W/C PER DANNI MEDEL OR ANJUM Addendum: 02/26/20 at 0050 by ESEQUIEL ATKINSON LVN Amended: Links added.
--- NOTE | 2020-02-26 08:28 | NUR ---
CM Note Retro-review. Patient admitted and discharged same day. CM unable to visit patient. No nursing prompts received with any issues/concerns regarding patient's discharge plan. Patient discharged to home. CD
== END 2020-02-25 20:30 | disposition home or self-care (01) | DRG 745 ==
LOC: EDH 09:30 → WSH 09:31
PROVIDERS: ADMIT Specialist; ATTEND Specialist
PROC: 30233N1 Transfusion of Nonautologous Red Blood Cells into Peripheral Vein, Percutaneous Approach (ICD-10-PCS; 2020-02-25)
PROC: 0UDB7ZZ Extraction of Endometrium, Via Natural or Artificial Opening (ICD-10-PCS; principal; 2020-02-25 16:38)
DX: N92.0 Excessive and frequent menstruation with regular cycle (principal); D64.9 Anemia, unspecified; N81.2 Incomplete uterovaginal prolapse
CPT/HCPCS: 36415; 36430; 80048; 80076; 81001; 81025; 85014; 85018; 85025; 85610; 85730; 86850; 86900; 86901; 86922; A4351; G0378; J0330; J2001; J2405; J2704; J3010; J7030; J7120; P9016

== ENCOUNTER 2022-05-15 19:21 | Emergency (ER) | payer OTHER ==
[~2022-05-15] VITALS: Ht 157.5 cm; Wt 80.7 kg
[2022-05-15 19:34] VITALS: BP 128/66
[2022-05-15] MEDS ORDERED: LIDOCAINE HCL-MPF 2% 5ML VIAL ONE (19:52)
[2022-05-15] MEDS ORDERED: TETANUS/DIPHTHERIA TOXOID [ADULT] 0.5 ML VIAL IM ONE (20:00)
[2022-05-15] MEDS ORDERED: IBUPROFEN 600 MG TABLET PO ONE (20:00)
[2022-05-15] MEDS ORDERED: BACI30OI6 TP (20:08)
[2022-05-15] MEDS ORDERED: BACITRACIN 1 EACH PACKET TP ONE (20:19)
== END 2022-05-15 20:25 | disposition home or self-care (01) ==
LOC: EDH 19:21
DX: S01.81XA Laceration without foreign body of other part of head, initial encounter (principal); Z79.1 Long term (current) use of non-steroidal anti-inflammatories (NSAID); X58.XXXA Exposure to other specified factors, initial encounter; Y93.89 Activity, other specified; Y92.89 Other specified places as the place of occurrence of the external cause; Y99.8 Other external cause status
CPT/HCPCS: 99283; 12013; 90714; 90471; J3490

== ENCOUNTER 2023-07-09 09:55 | Emergency (ER) | payer OTHER ==
[~2023-07-09] VITALS: Ht 157.5 cm; Wt 82.6 kg
[~2023-07-09 09:55] MED LIST changes: +BACI30OI6 TP; -IBUP-2077 PO
[2023-07-09 10:19] LABS: RAPID GROUP A STREP negative (NEGATIVE)
[2023-07-09 10:25] LABS: SARS-CoV-2, RNA, NAAT NEGATIVE SARS CoV-2 (NEGATIVE)
[2023-07-09 10:30] LABS: INFLUENZA TYPE A Negative For Type A (NEGATIVE); INFLUENZA TYPE B Negative For Type B (NEGATIVE)
[2023-07-09] MEDS ORDERED: GUAIFENESIN 600 MG TABLET.ER PO ONE (10:30)
[2023-07-09] MEDS ORDERED: BENZONATATE 100 MG CAPSULE PO ONE (10:30)
[2023-07-09] MEDS ORDERED: OXYMETAZOLINE HCL SPRAY 15 ML BOTTLE EN SCH (10:30)
[2023-07-09] MEDS ORDERED: DEXAMETHASONE SOD PHOSPHATE 4 MG/ML 1ML VIAL IM ONE (10:30)
[2023-07-09] MEDS ORDERED: FLUT16H NASAL (12:04)
[2023-07-09] MEDS ORDERED: BROM118S48 PO (12:04)
[2023-07-09 12:40] VITALS: BP 133/74; PULSE 78; RESP 18; O2SAT 98
== END 2023-07-09 12:41 | disposition home or self-care (01) ==
LOC: EDH 09:55
DX: J06.9 Acute upper respiratory infection, unspecified (principal); R05.9 Cough, unspecified; R09.81 Nasal congestion; M79.10 Myalgia, unspecified site; Z20.822 Contact with and (suspected) exposure to COVID-19
CPT/HCPCS: 99284; 71045; 87635; 87880; 87804 ×2; 96372; J1100; C9803

== ENCOUNTER 2023-11-11 17:44 | Emergency (ER) | payer MEDICAID, OTHER ==
[~2023-11-11] VITALS: Ht 157.5 cm; Wt 81.6 kg
[~2023-11-11 17:44] MED LIST changes: +BROM118S48 PO; +FLUT16H NASAL
[2023-11-11] MEDS ORDERED: ONDANSETRON ODT 4MG TAB SL ONE (19:30)
[2023-11-11] MEDS ORDERED: IBUPROFEN 800 MG TAB PO ONE (19:30)
[2023-11-11] MEDS: IBUPROFEN 600 MG TABLET ONE (19:37)
[2023-11-11] MEDS: IBUPROFEN 600 MG TABLET PO ONE (19:37)
[2023-11-11] MEDS: ACETAMINOPHEN 500 MG TABLET ONE (19:37)
[2023-11-11 19:38] VITALS: TEMP 101
[2023-11-11] MEDS: ACETAMINOPHEN 500 MG TABLET PO ONE (19:38)
[2023-11-11 20:02] LABS: COVID19 (SARS ANTIGEN RAPID) PRESUMPTIVE NEGATIVE (NEGATIVE); INFLUENZA TYPE B Negative For Type B (NEGATIVE)
[2023-11-11 20:23] LABS: INFLUENZA TYPE A Positive For Type A (NEGATIVE)
[2023-11-11] MEDS ORDERED: ALBUHFA IH (20:44)
[2023-11-11] MEDS ORDERED: OSEL75 PO (20:44)
[2023-11-11] MEDS ORDERED: BENZ-39 PO (20:44)
[2023-11-11 20:55] VITALS: BP 122/56; PULSE 89; RESP 18
== END 2023-11-11 20:57 | disposition home or self-care (01) ==
LOC: EDH 17:44
DX: J10.1 Influenza due to other identified influenza virus with other respiratory manifestations (principal); R05.9 Cough, unspecified; Z20.822 Contact with and (suspected) exposure to COVID-19
CPT/HCPCS: 87426; 87804

== ENCOUNTER 2024-12-04 08:20 | Emergency (ER) | payer MEDICAID ==
[~2024-12-04] VITALS: Ht 157.5 cm; Wt 84.4 kg
[~2024-12-04 08:20] MED LIST changes: +ALBUHFA IH; +BENZ-39 PO; +OSEL75 PO
--- NOTE | 2024-12-04 08:44 | NUR ---
PT JUST NOW PLACED IN MY ED BED 12
[2024-12-04 09:06] LABS: APPEARANCE,URINE CLEAR (CLEAR); BILIRUBIN,URINE NEGATIVE (NEGATIVE); COLOR,URINE LIGHT-YELLOW (YELLOW); GLUCOSE, URINE (UA) NEGATIVE (NEGATIVE); KETONES,URINE NEGATIVE (NEGATIVE); LEUKOCYTE ESTERASE ,URINE 250 Leu/uL (NEGATIVE); NITRATE,URINE NEGATIVE (NEGATIVE); OCCULT BLOOD,URINE MODERATE (NEGATIVE); PH,URINE 6.5 (5.0-8.0); PROTEIN,URINE NEGATIVE (NEGATIVE); UROBILINOGEN,URINE 0.2 mg/dL (0.2-1.0)
[2024-12-04 09:09] LABS: ADD UA MICROSCOPIC YES
[2024-12-04 09:14] LABS: BACTERIA,URINE FEW /HPF (None Seen); MUCUS,URINE RARE LPF (None Seen); OTHER CASTS, URINE 2 /LPF (None Seen); SQUAMOUS EPITHELIAL CELL,UR FEW /HPF (0-2)
--- NOTE | 2024-12-04 09:20 | HMCIMG ---
PORTABLE CHEST RADIOGRAPH INDICATION: cp COMPARISON: 07/09/2023 FINDINGS: monitoring analyst leads overlie the field of view. Heart size is normal. The pulmonary vascularity and kb appear normal. No abnormal pulmonary parenchymal opacity or consolidation identified. No significant pleural effusion noted. No pneumothorax detected. IMPRESSION: No radiographic evidence for any acute cardiopulmonary process.
[2024-12-04 09:23] LABS: AMPHET/METH SCREEN,URINE NEGATIVE (NEGATIVE); BARBITURATE SCREEN, URINE NEGATIVE (NEGATIVE); BENZODIAZEPINES SCREEN,URINE NEGATIVE (NEGATIVE); CANNABINOID SCREEN,URINE POSITIVE (NEGATIVE); COCAINE SCREEN,URINE NEGATIVE (NEGATIVE); OPIATE SCREEN,URINE NEGATIVE (NEGATIVE); PHENCYCLIDINE SCREEN,URINE NEGATIVE (NEGATIVE)
[2024-12-04 09:32] LABS: BASOPHILS # (AUTO) 0.05 K/uL (0.00-0.20); BASOPHILS % (AUTO) 0.7 % (0.0-5.0); EOSINOPHILS # (AUTO) 0.16 K/uL (0.00-0.70); EOSINOPHILS % (AUTO) 2.2 % (0.0-8.0); HEMATOCRIT 41.9 % (36-48); IMMATURE GRANULOCYTE ABSOLUTE 0.03 K/uL (0-1); LYMPHOCYTES # (AUTO) 2.5 K/uL (1.0-4.8); LYMPHOCYTES % (AUTO) 34.5 % (21.0-51.0); MEAN CORPUSCULAR HEMOGLOBIN 27.7 pg (27.0-33.0); MEAN CORPUSCULAR HGB CONC 32.2 g/dL (32.0-36.0); MONOCYTES # (AUTO) 0.3 K/uL (0.1-1.0); MONOCYTES % (AUTO) 4.5 % (3.0-13.0); NEUTROPHILS # (AUTO) 4.2 K/uL (1.8-7.7); NEUTROPHILS % (AUTO) 57.7 % (40.0-77.0); PLATELET COUNT (AUTO) 208 K/uL (130-400); RED BLOOD CELL COUNT(AUTO) 4.87 MIL/uL (4.00-5.50); RED CELL DISTRIBUTION WIDTH 13.8 % (11.0-15.5); WHITE BLOOD COUNT (AUTO) 7.3 K/uL (4.8-10.8)
[2024-12-04] MEDS: 0.9%NACL 1000ML 1,000 ML IV ONE (10:02)
[2024-12-04] MEDS: PANTOPrazole 40 MG/VIAL IVP ONE (10:02)
[2024-12-04 10:05] LABS: B-TYPE NATRIURETIC PEPTIDE 6 pg/mL (0-100)
[2024-12-04 10:07] LABS: PROTHROMBIN TIME 10.6 SEC (9.6-11.6)
[2024-12-04 10:08] LABS: CREATININE 0.6 mg/dL (0.5-1.0); PARTIAL THROMBOPLASTIN TIME 31.3 SEC (26.3-35.5); POTASSIUM 4.3 mmol/L (3.5-5.1)
[2024-12-04 10:14] LABS: MAGNESIUM 2.2 mg/dL (1.80-2.40)
--- NOTE | 2024-12-04 10:19 | EKG ---
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
[2024-12-04] MEDS ORDERED: CEPH500B PO (10:43)
--- NOTE | 2024-12-04 10:44 | ERN ---
General Chief Complaint: Chest Pain Stated Complaint: CHEST PAIN,DIZZY Time Seen by MD: 08:24 Source: patient History of Present Illness Initial Comments PATIENT IS A 44-YEAR-OLD FEMALE COMING IN TO BE EVALUATED FOR MULTIPLE COMPLAINTS. PATIENT STATES THAT SHE HAS BEEN HAVING SOME PRESSURE-LIKE SYMPTOMS IN HER CHEST, MORE EPIGASTRIC THAN CHEST. SHE STATES THAT THIS HAS BEEN ONGOING FOR TWO DAYS. NO FEVER NO CHILLS NO NAUSEA NO VOMITING. PATIENT DOES HAVE A HISTORY OF HYPERTENSION BUT NO PREVIOUS HEART ISSUES. Allergies: Coded Allergies: No Known Allergies (Verified Allergy, 06/17/13) Home Meds Active Scripts Albuterol Sulfate (Ventolin Hfa/Proventil Hfa/Proair Hfa) 90 Mcg Puff, 2 PUFF IH Q4H for WHEEZING, #1 INHALER 0 Refills Prov:YOON ISLAS CARDIOLOGY TECH 11/11/23 Benzonatate (Tessalon Perles) 100 Mg Cap, 100 MG PO TID for cough, #30 CAP 0 Refills Prov:YOON ISLAS CARDIOLOGY TECH 11/11/23 Oseltamivir Phosphate (Tamiflu) 75 Mg Cap, 75 MG PO BID for 5 Days, #10 CAP Prov:YOON ISLAS CARDIOLOGY TECH 11/11/23 Fluticasone Propionate (Flonase Nasal [place]) 50 Mcg/Actuation [place], 50 MCG NASAL DAILY PRN for NASAL CONGESTION, #1 BOTTLE 0 Refills Prov:YULI FORD [facility] 07/09/23 D-Methorphan Hb/P-Epd HCl/Bpm (Bromfed Dm Cough Syrup) 2 Mg-30 Mg-10 Mg/5 Ml Syrup, 10 ML PO Q6HPRN PRN for COUGH/COLD SYMPTOMS, #240 ML 0 Refills Prov:YULI FORD [facility] 07/09/23 Bacitracin (Bacitracin) 28.4 Gm Oint...g., 28.4 GM TP TID, #1 TUBE Prov:LUZ WOO [facility] 05/15/22 Past Medical History Past Medical History: Hypertension, Other Medical History Other: RA Past Surgical History: Other Surgical History Other: D&C, CTR TO RT HAND Female( History) History: Not Applicable ROS Dictation CONSTITUTIONAL: NO CHILLS, NO FEVER, NO WEAKNESS, NO DIAPHORESIS, NO MALAISE. HEAD/FACE: NO SIGNS OF TRAUMA. EENT: NO EYE PAIN, NO BLURRED VISION, NO TEARING, NO DOUBLE VISION, NO EAR PAIN, NO EAR DISCHARGE, NO NOSE PAIN, NO NASAL CONGESTION, NO THROAT PAIN, NO THROAT SWELLING, NO MOUTH PAIN. RESPIRATORY: NO COUGH, NO ORTHOPNEA, NO SOB, NO STRIDOR, NO WHEEZING. CARDIOVASCULAR: NO CHEST PAIN, NO EDEMA, NO PALPITATIONS, NO SYNCOPE. GASTROINTESTINAL/ABDOMINAL: NO ABDOMINAL PAIN, NO CONSTIPATION, NO DIARRHEA, NO NAUSEA, NO VOMITING. GENITOURINARY: NO ABNORMAL DISCHARGE, NO DYSURIA, NO FREQUENT URINATION, NO HEMATURIA. NO COMPLAINTS OF PAIN IN THE GENITALS. MUSCULOSKELETAL: NO BACK PAIN, NO GOUT, NO JOINT PAIN, NO JOINT SWELLING, NO MUSCLE PAIN, NO MUSCLE STIFFNESS, NO NECK PAIN. INTEGUMENTARY: NO CHANGE IN COLOR, NO CHANGE IN HAIR/NAILS, NO DRYNESS, NO LESION, NO LUMPS, NO RASH. NEUROLOGICAL/PSYCH: NO ANXIETY, NOT DEPRESSED, NO EMOTIONAL PROBLEM, NO HEADACHE, NO NUMBNESS, NO PRE-EXISTING DEFICIT, NO HISTORY OF SEIZURES, NO TREMORS, NO WEAKNESS. HEMATOLOGIC/LYMPHATIC: NOT ANEMIC, NO HISTORY OF BLOOD CLOTS, NO APPARENT BLEEDING, NO BRUISING, GLANDS NOT SWOLLEN. ALL SYSTEMS NEGATIVE, EXCEPT NOTED. Physical Exam Physical Exam Dictation VITAL SIGNS: REVIEWED. GENERAL APPEARANCE: ALERT, ORIENTED X3, NO ACUTE DISTRESS, OBESE. HEAD AND FACE: NON-TRAUMATIC. EYES: PERRL, PINK CONJUNCTIVAS, EYELID NO TRAUMA, ANTERIOR CHAMBER CLEAR. EARS: PINNAS INTACT AND NO SIGNS OF TRAUMA OR ERYTHEMA. EAR CANALS CLEAR AND NO DISCHARGE. TMS NO ERYTHEMA. NOSE: NO DISCHARGE, NO BLEEDING. OROPHARYNX: MOUTH NORMAL, TEETH NO CARIES, TONGUE PINK. PHARYNX CLEAR, NO ERYTHEMA. TONSILS NO EXUDATES, NO ABSCESSES NOTED. MUCOUS MEMBRANE MOIST. NECK: SUPPLE, NON-TENDER, NO THYROMEGALY, NO MASSES, NO JVD, NO BRUITS. BREAST: DEFERRED. CHEST: NO TENDERNESS, NO CREPITUS, NO PARADOXICAL MOVEMENT, NO RETRACTIONS. LUNGS: CLEAR, WELL-VENTILATED, SYMMETRIC, NO RALES, NO WHEEZING, NO RHONCHI, NO STRIDOR, GOOD BREATH SOUNDS BILATERALLY. HEART: REGULAR RATE, REGULAR RHYTHM, NO MURMUR, NO GALLOPS. VASCULAR: NO PERIPHERAL EDEMA. ABDOMEN: SOFT, POSITIVE BOWEL SOUNDS, NONDISTENDED, NO GUARDING, NONTENDER, NO REBOUND, NO MASSES NO HEPATOMEGALY, NO SPLENOMEGALY, NO ARCHULETA'S SIGN, NO HERNIAS. RECTAL: DEFERRED. GENITAL: DEFERRED. NEUROLOGICAL: NORMAL SPEECH, GROSS MOTOR FUNCTION INTACT, GROSS SENSORY FU NCTION INTACT. MUSCULOSKELETAL: NECK NONTENDER, FULL RANGE OF MOTION, BACK NONTENDER, FULL RANGE OF MOTION. EXTREMITIES: NONTENDER, FULL RANGE OF MOTION. SKIN: COLOR PINK, DRY, NO TURGOR, NO RASH, NO LACERATIONS, NO ABRASIONS, NO CONTUSIONS. LYMPHATICS: DEFERRED. Results Laboratory and Microbiology Lab and Micro Result Laboratory Tests Test 12/04/24 08:45 12/04/24 09:00 12/04/24 09:44 Urine Color LIGHT-YELLOW (YELLOW) Urine Appearance CLEAR (CLEAR) Urine pH 6.5 (5.0-8.0) Urine Specific [place] 1.018 (1.001-1.031) Urine Protein NEGATIVE mg/dL (NEGATIVE) Urine Glucose (UA) NEGATIVE mg/dL (NEGATIVE) Urine Ketones NEGATIVE mg/dL (NEGATIVE) Urine Occult Blood MODERATE (NEGATIVE) H Urine Nitrate NEGATIVE (NEGATIVE) Urine Bilirubin NEGATIVE mg/dL (NEGATIVE) Urine Urobilinogen 0.2 mg/dL (0.2-1.0) Urine Leukocyte Esterase 250 Helio/uL (NEGATIVE) H Urine RBC 2-5 /HPF (0-1) H Urine WBC 11-25 /HPF (0-1) H Urine Squamous Epithelial Cells FEW /HPF (0-2) Urine Bacteria FEW /HPF (None Seen) Urine Other Casts 2 /LPF (None Seen) Urine Opiates Screen NEGATIVE (NEGATIVE) Urine Barbiturates Screen NEGATIVE (NEGATIVE) Urine Phencyclidine Screen NEGATIVE (NEGATIVE) Urine Amphetamines Screen NEGATIVE (NEGATIVE) Urine Benzodiazepines Screen NEGATIVE (NEGATIVE) Urine Cocaine Screen NEGATIVE (NEGATIVE) Urine Marijuana (THC) Screen POSITIVE (NEGATIVE) H White Blood Count 7.3 K/uL (4.8-10.8) Red Blood Count 4.87 MIL/uL (4.00-5.50) Hemoglobin 13.5 g/dL (12.0-16.0) Hematocrit 41.9 % (36-48) Mean Corpuscular Volume 86.0 fL (79-99) Mean Corpuscular Hemoglobin 27.7 pg (27.0-33.0) Mean Corpuscular Hemoglobin Concent 32.2 g/dL (32.0-36.0) Red Cell Distribution Width 13.8 % (11.0-15.5) Platelet Count 208 K/uL (130-400) Mean Platelet Volume 11.2 fL (7.5-10.5) H Immature Granulocyte % (Auto) 0.4 % (0-1) Neutrophils (%) (Auto) 57.7 % (40.0-77.0) Lymphocytes (%) (Auto) 34.5 % (21.0-51.0) Monocytes (%) (Auto) 4.5 % (3.0-13.0) Eosinophils (%) (Auto) 2.2 % (0.0-8.0) Basophils (%) (Auto) 0.7 % (0.0-5.0) Neutrophils # (Auto) 4.2 K/uL (1.8-7.7) Lymphocytes # (Auto) 2.5 K/uL (1.0-4.8) Monocytes # (Auto) 0.3 K/uL (0.1-1.0) Eosinophils # (Auto) 0.16 K/uL (0.00-0.70) Basophils # (Auto) 0.05 K/uL (0.00-0.20) Absolute Immature Granulocyte (auto 0.03 K/uL (0-1) Nucleated Red Blood Cells 0.0 % (0.0-0.19) B-Type Natriuretic Peptide 6 pg/mL (0-100) Prothrombin Time 10.6 SEC (9.6-11.6) Prothromb Time International Ratio 1.00 (0.85-1.15) Activated Partial Thromboplast Time 31.3 SEC (26.3-35.5) Sodium Level 139 mmol/L (136-145) Potassium Level 4.3 mmol/L (3.5-5.1) Chloride Level 105 mmol/L (101-111) Carbon Dioxide Level 31 mmol/L (21-32) Blood Urea Nitrogen 8 mg/dL (7-18) Creatinine 0.6 mg/dL (0.5-1.0) Glomerular Filtration Rate Calc 113 mL/min (>90) Random Glucose 101 mg/dL (70-105) Total Calcium 8.5 mg/dL (8.5-10.1) Magnesium Level 2.20 mg/dL (1.80-2.40) Total Creatine Kinase 69 U/L (21-232) Troponin I High Sensitivity 7 ng/L (4-50) Labs Reviewed?: Yes EKG/XRAY/US/CT/MRI EKG Comment 12/04/2024 TIME 8:12 A.M. VENTRICULAR RATE 59 SINUS RHYTHM [place] [address] WAVE ELEVATION OR DEPRESSION MDM MDM: DIFFERENTIAL DIAGNOSIS: UTI, CANNABIS ABUSE, ACS, NSTEMI, PATIENT IS A 44-YEAR-OLD FEMALE COMING IN TO BE EVALUATED FOR MULTIPLE COMPLAINTS. PATIENT STATES THAT SHE HAS BEEN HAVING CHEST PRESSURE LOCALIZED TO THE EPIGASTRIC AND MIDSTERNAL REGION. EKG CHEST X-RAY CARDIAC WORKUP NEGATIVE FOR ACUTE FINDINGS. PATIENT WAS FOUND TO HAVE A URINARY TRACT INFECTION WELL CANNABIS IN HER SYSTEM. PATIENT WILL BE DISCHARGED IN STABLE CONDITION. ED Course Orders Procedure Category Date Status Time 12 Lead Ekg Tracing- EKG 12/04/24 Complete Technical 08:23 Cbc With Differential LAB 12/04/24 Complete 08:24 Prothrombin Time With LAB 12/04/24 Complete INR 08:24 B-Type Natriuretic LAB 12/04/24 Complete Peptide 08:24 Chest 1vw RAD 12/04/24 Resulted 08:24 0.9%Nacl 1000ml (Ns PHA 12/04/24 Complete 1000ml) 08:30 Magnesium LAB 12/04/24 Complete 08:24 Creatine Kinase, Total LAB 12/04/24 Complete 08:24 Troponin I High LAB 12/04/24 Complete Sensitivity 08:24 Urinalysis Profile LAB 12/04/24 Complete 08:24 Partial LAB 12/04/24 Complete Thromboplastin Time 08:24 Basic Metabolic Panel LAB 12/04/24 Complete 08:24 Drug Screen Urine LAB 12/04/24 Complete 08:24 Culture Urine NOLVIA 12/04/24 In Process 09:09 Pantoprazole 40mg Inj PHA 12/04/24 Complete (Protonix 40mg Inj 10:00 Current Medications Medications (Trade) Dose Ordered Sig/Lizeth Route PRN Reason Start Time Stop Time Status Last Admin Dose Admin Pantoprazole Sodium (PROTonix 40MG INJ) 40 mg ONCE ONCE IVP 12/04/24 10:00 12/04/24 10:01 DC 12/04/24 10:02 Sodium Chloride 1,000 ml @ 0 mls/hr ONCE ONCE IV 12/04/24 08:30 12/04/24 08:31 DC 12/04/24 10:02 Vital Signs Date Time Temp Pulse Resp B/P (MAP) Pulse Ox O2 Delivery O2 Flow Rate FiO2 12/04/24 08:28 98.8 58 18 180/88 99 0 DX & DISP Disposition: Discharge Departure Impression: Primary Impression: Cannabis abuse Additional Impression: UTI (urinary tract infection) Condition: Stable Scripts Cephalexin Monohydrate (Keflex) 500 Mg Cap 1 CAP PO BID for 10 Days, #20 CAP 0 Refills Prov: PABLO BOB MD 12/04/24 Additional Instructions: YOU HAVE BEEN REVIEWED IN THE EMERGENCY DEPARTMENT AT [facility] AFTER PRESENTING WITH CHEST PAIN. AFTER CONSIDERING YOUR HISTORY, YOUR RISK FACTORS, YOUR EKG AND YOUR BLOOD TEST TROPONINS, HAVE BEEN FOUND TO BE AT VERY LOW RISK LESS THAN (1 IN 100) OF HAVING A MAJOR ADVERSE CARDIAC EVENT (LIKE HEART ATTACK) IN THE NEAR FUTURE. IN THE " LOW RISK" GROUP, THE RISKS OF DOING FURTHER TESTS AND TREATMENT THE INPATIENT OUTWEIGHS THE BENEFITS. IN MANY PATIENTS IN THE LOW RISK GROUP FOR THE TEST OF ANY SORT OR UNNECESSARY, HOWEVER HE SHOULD DISCUSS THIS FURTHER WITH HIS GENERAL PRACTITIONER WHO WILL UNDERSTAND THE MEDICAL AND PERSONAL BACKGROUNDS BETTER. BECAUSE WE HAVE NEVER DECLARED YOU" NO RISK" WE WOULD SUGGEST. 1 RETURNING FOR MEDICAL REVIEW IF YOU HAVE FURTHER EPISODES OF CHEST PAIN/ARM PAIN OR OTHER CONCERNING SYMPTOMS LIKE DIZZINESS, COLLAPSE, PALPITATIONS OR SHORTNESS OF BREATH. 2. FOLLOWING UP WITH YOUR LOCAL DOCTOR WHO WILL CONSIDER THE NEED FOR FURTHER TESTING AND WILL ALSO ENSURE THAT ANY MODIFIABLE RISK FACTORS YOU MAY HAVE FOR HEART DISEASE ARE OPTIMALLY MANAGED. PATIENT WILL BE DISCHARGED IN STABLE CONDITION AT THE MOMENT DISCHARGE PATIENT STATES , NO CHEST PAIN Referrals: MARYJANE ARREGUIN (PCP) Time of Disposition: 10:43 PABLO BOB MD Dec 04, 2024 10:44
[2024-12-04 10:47] VITALS: BP 157/80; PULSE 60; RESP 16; TEMP 98; O2SAT 99
== END 2024-12-04 11:03 | disposition home or self-care (01) ==
LOC: EDH 08:20
DX: F12.10 Cannabis abuse, uncomplicated (principal); N39.0 Urinary tract infection, site not specified; I10 Essential (primary) hypertension
CPT/HCPCS: 99285; 96374; 71045; 96361; 82550; 83735; 84484; 80048; 83880; 80305; 85025; 85610; 85730; 87086; 81001; 36415; 93005; J7030; J2470